=== PATIENT | female | born 1960 | race Caucasian/White ===

== ENCOUNTER → 2023-09-21 07:47 | Outpatient (REF) | payer OTHER, SELFPAY | LOC: RAD 07:47 | PROVIDERS: ATTENDING PHYSICIAN Family Medicine | DX: R74.8 Abnormal levels of other serum enzymes (principal) | CPT/HCPCS: 76700 ==

== ENCOUNTER → 2023-09-25 13:15 | Outpatient (REF) | payer OTHER, SELFPAY ==
--- NOTE | 2023-09-25 14:14 | CARDSERVLU ---
Echocardiogram with Lumason completed after protocol screening completed. Allergies verified.
Patent IV site: left AC___
IV site flushed with 0.9% NaCl pre and post administration.
Diluted bolus method utilized to enhance visualization of ventricular dahl.
Total volume given: _1.5__ mL
Patient tolerated all procedures well without complications.
#22 [place] placed left AC. Lumason given. INT d/c'd. dsg applied and pressure held. No bleeding noted.
== END ==
LOC: RCS 13:15
PROVIDERS: ATTENDING PHYSICIAN Internal Medicine Cardiovascular Disease; FAMILY PHYSICIAN Family Medicine
DX: Z95.1 Presence of aortocoronary bypass graft (principal); I25.5 Ischemic cardiomyopathy; I10 Essential (primary) hypertension
CPT/HCPCS: 93306; Q9950

== ENCOUNTER → 2023-11-30 12:10 | Outpatient (REF) | payer OTHER, SELFPAY | LOC: HWWDC 12:10 | PROVIDERS: ATTENDING PHYSICIAN Obstetrics & Gynecology; FAMILY PHYSICIAN Family Medicine | DX: Z12.31 Encounter for screening mammogram for malignant neoplasm of breast (principal) | CPT/HCPCS: 77063; 77067 ==

== ENCOUNTER → 2025-03-23 18:27 | Outpatient (REF) | payer OTHER, SELFPAY | LOC: WDC 18:27 | PROVIDERS: ATTENDING PHYSICIAN Family Medicine | DX: Z12.31 Encounter for screening mammogram for malignant neoplasm of breast (principal) | CPT/HCPCS: 77063; 77067 ==